=== PATIENT | female | born 1935 | race Caucasian/White ===

== ENCOUNTER → 2016-10-21 | Outpatient (CLI) | payer MEDICARE ==
--- NOTE | ~2016-10-21 | CT57 ---
[facility] A Service of [facility] RADIOLOGY TEXT RESULTS PATIENT: FIFI JUAREZ LOCATION: [facility] : 37 UNIT #: [id number] AGE: [address]: Elder Morse MD SEX: F ORDER DR: [id number] [facility] [address] [place], [place] [address] [id number] O MR#: [id number] Acc #: [id number] NAME: FIFI JUAREZ. : 1935 SEX: F STUDY DATE/TIME: 10/21/2016 11:03 UNIT: [facility] ROOM: STUDY DESCRIPTION: CT Chest Wo Cont Attending Physician: Elder Morse M.D. Referring Physician: Elder Morse M.D. Ordering Physician: Elder Morse M.D. Primary Care Physician: Elder Morse M.D. MEDICAL IMAGING REPORT This report is preliminary unless electronic signature is present EXAM CT chest without contrast INDICATION Follow up pneumonia. Follow up consolidation in the left lung on previous CT. PROCEDURE Unenhanced CT of the chest. COMPARISON 07/30/2016. TECHNIQUE This CT examination was performed with one or more of the following radiation dose reduction techniques: automatic exposure control, adjustment of mA and/or kV according to patient size, and iterative reconstruction. FINDINGS The previously demonstrated more dense areas of consolidation in the lingula and left lower lobe have improved. There is persistent extensive, mucous plugging in the posterior lingula and anterolateral left lower lobe, with associated tree-in-bud nodularity. There is also some tree in bud nodularity in the posterior left upper lobe, that is similar. Tree-in-bud nodularity in the right upper lobe is also not significantly changed. There is no new dense consolidation. No pleural fluid or pneumothorax. Coronary artery calcification. No pathologically enlarged adenopathy. No acute findings in the included upper abdomen. No aggressive appearing bone lesion. [facility] A Service [facility] RADIOLOGY TEXT RESULTS PATIENT: FIFI JUAREZ LOCATION: [facility] : 37 UNIT #: [id number] AGE: [address]: Elder Morse MD SEX: F ORDER DR: IMPRESSION 1. The dense areas of consolidation in the left lung base on the prior have improved. There is persistent tree-in-bud nodularity in the lingula, left lower lobe, posterior left upper lobe and right upper lobe in keeping with infectious or inflammatory small airways disease. 2. Extensive mucous plugging in the anterolateral left lower lobe bronchi. Dictated by... Aditya Hearn M.D. THIS IS AN ELECTRONICALLY VERIFIED REPORT Aditya Hearn M.D. at 10/23/2016 7:14 AM BOUBACAR/keith TD: 10/21/2016 16:04 JOB #: [id number] MEDICAL IMAGING REPORT Page 1 of 1 COPY
== END | disposition home or self-care (01) ==
LOC: CCAT 10:41
DX: R93.8 Abnormal findings on diagnostic imaging of other specified body structures (principal); J18.9 Pneumonia, unspecified organism; J18.1 Lobar pneumonia, unspecified organism; T17.590A Other foreign object in bronchus causing asphyxiation, initial encounter
CPT/HCPCS: 71250